=== PATIENT | male | born 1985 | race African-American/Black ===

== ENCOUNTER 2020-11-01 09:00 | Emergency (ER) | payer OTHER, SELFPAY ==
[2020-11-01] VITALS (11 sets, daily range): BP systolic 97–121; BP diastolic 74–85; PULSE 72–85; RESP 17–25; TEMP 36.4; O2SAT 98–100
--- NOTE | ~2020-11-01 | XR_ITS ---
XR chest 1V portable DATE: 11/01/2020 10:09 INDICATION: Shortness of breath. TECHNIQUE: Portable AP chest on 11/01/2020 at 0959 hours COMPARISON: 10/03/2015 PA and lateral chest FINDINGS: There are patchy bibasilar infiltrates and/atelectasis, new since 10/03/2015. No pleural effusion or pulmonary vascular congestion or pneumothorax is evident. Heart size appears w ithin normal range. Included skeletal structures are unremarkable. IMPRESSION: Patchy bibasilar infiltrate and/atelectasis Reviewed, dictated and finalized at location A.
--- NOTE | 2020-11-01 09:20 | ED.GENADULT ---
HPI - General Adult General Chief complaint: Shortness of Breath/Dyspnea Stated complaint: COVID + 10/31/20 - trouble breathing Time Seen by Provider: 11/01/20 09:12 Source: patient and RN notes reviewed Mode of arrival: ambulatory Limitations: no limitations History of Present Illness HPI narrative: Patient presents with Covid positive test from yesterday continue to have shortness of breath and cough patient symptoms began on the 10/26. Patient was seen yesterday and had positive Covid test by his primary care and now presents noting that he has cough and shortness of breath patient denies vomiting or diarrhea or chest pain. Patient was prescribed medications which she has been using to include inhalers. Patient denies any pertinent past medical history and on arrival presents with normal vital signs in no distress and does not appear uncomfortable Related Data Home Medications Medication Instructions Recorded Confirmed codeine-guaifenesin [Guaiatussin ml 11/01/20 AC] fluticasone propionate INTRANASAL 11/01/20 methylprednisolone mg 11/01/20 Allergies Allergy/AdvReac Type Severity Reaction Status Date / Time No Known Allergies Allergy Verified 11/01/20 09:15 Review of Systems Review of Systems: All systems reviewed & are unremarkable except as noted in HPI and below PMFSH Social History Social History (Updated 11/01/20 @ 11:56 by Yousuf Stewart PA-C) Smoking status: Never smoker Gender identity (if verbalized by the patient): Male Exam Narrative: Exam Narrative: GENERAL: Well-appearing, well-nourished, and in no acute distress. HEAD: Normocephalic, atraumatic. EYES: PERRLA and EOMI. ENT: Nares clear, no rhinorrhea or epistaxis. Mucous membranes moist. CHEST: Clear to auscultation. No respiratory distress. No wheezes rales or rhonchi HEART: Regular rate and rhythm. No murmur heard. EXTREMITIES: Normal range of motion. No edema. SKIN: Warm, dry, no rash. NEURO: No focal deficits. Alert and oriented x3. PSYCH: Normal mood and affect. Course Course Emergency Course: Patient with Covid presentation no hypoxemia no distress does not appear uncomfortable will follow with primary care given instructions on reasons to return ABCs and vital signs intact and stable. Was given an MDI instruct. Advised to purchase a home oximeter which she will do and will be discharged with outpatient follow-up with primary care Vital Signs Vital signs: Vital Signs Temperature 97.6 F 11/01/20 09:06 Pulse Rate 85 11/01/20 09:06 Respiratory Rate 18 11/01/20 09:06 Blood Pressure 113/78 11/01/20 09:06 Pulse Oximetry 99 11/01/20 09:06 Temperature 97.6 F 11/01/20 09:06 Pulse Rate 78 11/01/20 11:45 Respiratory Rate 18 11/01/20 11:45 Blood Pressure 97/85 L 11/01/20 11:45 Pulse Oximetry 99 11/01/20 11:45 Medical Decision Making MDM Narrative Medical decision making narrative: ABCs and vital signs intact and stable in the room in no distress aware of case findings treatment plan and diagnosis. Patient advised to continue the medications that his doctor prescribed which did include an antibiotic Vital Signs Vital Signs: Vital Signs Temperature 97.6 F 11/01/20 09:06 Pulse Rate 85 11/01/20 09:06 Respiratory Rate 18 11/01/20 09:06 Blood Pressure 113/78 11/01/20 09:06 Pulse Oximetry 99 11/01/20 09:06 Temperature 97.6 F 11/01/20 09:06 Pulse Rate 78 11/01/20 11:45 Respiratory Rate 18 11/01/20 11:45 Blood Pressure 97/85 L 11/01/20 11:45 Pulse Oximetry 99 11/01/20 11:45 Imaging Data Radiologist's impression: ITS Impressions Chest X-Ray 11/01/20 10:14 IMPRESSION: Patchy bibasilar infiltrate and/atelectasis Discharge Plan Discharge Clinical Impression: COVID-19 Patient Disposition: Home, Self-Care Condition: Stable Instructions: Antibiotic Form, COVID-19 (Coronavirus Disease 2019) (ED) Additional Instruction
== END 2020-11-01 12:36 | disposition home or self-care (01) ==
PROVIDERS: Emergency Provider Emergency Medicine
DX: U07.1 COVID-19 (principal)
CPT/HCPCS: 71045; 99283

== ENCOUNTER 2023-02-03 00:19 | Emergency (ER) | payer OTHER, SELFPAY ==
[2023-02-03 00:23] VITALS: BP 126/72; PULSE 64; RESP 16; TEMP 36.6; O2SAT 100
[2023-02-03 01:22] LABS: Appearance Urine Clear (Clear); Bilirubin Urine Negative (Negative); Blood Urine Negative (Negative); Color Urine Yellow (Yellow); Glucose Urine UA Negative (Negative); Ketones Urine Trace mg/dL (Negative); Leukocyte Esterase Ur Negative LEU/UL (Negative); Nitrate Urine Negative (Negative); Protein Urine Negative (Negative); Specific Grav Ur 1.021 (1.001-1.035)
[2023-02-03 01:25] LABS: Add Urine Microscopic? NO
--- NOTE | 2023-02-03 01:40 | ED.MALEGU ---
HPI - Male Genitourinary General Chief complaint: Urogenital-Male <Deneen Ibarra PA-C - Last Filed: 02/03/23 01:51> Stated complaint: pain with urination <AMOR Desai Last Filed: 02/03/23 01:51> Time Seen by Provider: 02/03/23 01:19 <AMOR Desai Last Filed: 02/03/23 01:51> History of Present Illness HPI Narrative: 37-year-old male reports for evaluation for dysuria since yesterday. Patient states when he urinates it feels like someone is sticking a needle into his urethra. Patient reports a history of similar episodes when he was a teenager and states that spontaneously resolved after 1 day, therefore he never sought medical attention. He denies abdominal pain, testicular pain, testicular edema, penile lesions, penile discharge, back pain, rectal pain, fever, nausea, vomiting. Patient reports he has never had intercourse with anyone other than his and is not concerned for STDs. <Deneen Ibarra PA-C - Last Filed: 02/03/23 01:51> Related Data Home medications: Home Medications Medication Instructions Recorded Confirmed codeine 10 mg-guaifenesin 100 mg/5 ml 11/01/20 mL oral liquid (Guaiatussin AC) fluticasone propionate 50 intranasal 11/01/20 mcg/actuation nasal spray,suspension methylprednisolone 4 mg tablets in mg 11/01/20 a dose pack <AMOR Desai Last Filed: 02/03/23 01:51> Allergies/Adverse reactions: Allergies Allergy/AdvReac Type Severity Reaction Status Date / Time codeine AdvReac Unconscious Verified 02/03/23 01:04 <AMOR Desai Last Filed: 02/03/23 01:51> Review of Systems Review of Systems: CONSTITUTIONAL: Denies fever, chills EYES: Denies visual changes, redness, or discharge. ENT: Denies rhinorrhea, congestion, sore throat, or otalgia. CARDIOVASCULAR: Denies chest pain, palpitations, or edema. RESPIRATORY: Denies cough or dyspnea. GASTROINTESTINAL: Denies abdominal pain, nausea, vomiting, or diarrhea. GENITOURINARY: See HPI SKIN: Denies rash or itching. MUSCULOSKELETAL: Denies back pain, joint pain, or myalgia. NEUROLOGIC: Denies headache, numbness, dizziness, or weakness. PSYCHIATRIC: Denies anxiety or depression. <Deneen Ibarra PA-C - Last Filed: 02/03/23 01:51> [facility] Social History Social History: Social History Smoking status: Never smoker Gender identity (if verbalized by the patient): Male <Deneen Ibarra PA-C - Last Filed: 02/03/23 01:51> Exam Narrative: GENERAL: Well-appearing, in no acute distress. Patient resting comfortably in exam bed. He is pleasant and conversational. HEAD: Normocephalic NECK: Supple. CHEST: No respiratory distress. Clear to auscultation, no adventitious breath sounds. HEART: Regular rate and rhythm. No murmur heard. Normal peripheral pulses. ABDOMEN: Soft, nontender, normal active bowel sounds. No CVA tenderness : Testicles are low-lying. No tenderness or edema to testicles or epididymis. No tenderness to spermatic cord. Normal cremaster reflex. No crepitus to perineum. No lesions, rashes or edema to penis. No penile discharge. EXTREMITIES: Normal range of motion. No edema. SKIN: Warm, dry, no rash. NEURO: No focal deficits. Alert and oriented x3. PSYCH: Normal mood and affect. <Deneen Ibarra PA-C - Last Filed: 02/03/23 01:51> Course [employer]INFORMAT[employer] RESEARCH TECHNICIAN/PA Physician Supervision This is a was performed by both a physician and an APC. I performed all aspects of the MDM as documented w/ the following additions: 37-year-old presenting with dysuria. Urine not indicative of infection. STDs testing sent to the lab. Patient given Urology follow-up.All questions answered. Patient in agreement w/ disposition. <Tab Burnette MD - Last Filed: 02/03/23 05:13> Vital Signs Vital signs: Vital Signs Temperature 97.8 F 02/03/23 00:23 Pulse Rate 64
== END 2023-02-03 01:50 | disposition home or self-care (01) ==
PROVIDERS: Emergency Medicine; Emergency Provider Physician Assistant
DX: R30.0 Dysuria (principal)
CPT/HCPCS: 81003; 87491; 87591; 87661; 99283